=== PATIENT | female | born 1955 | race Caucasian/White ===

== ENCOUNTER 2021-08-16 14:54 | Outpatient (REF) | payer MEDICARE, MEDICAID, SELFPAY ==
--- NOTE | 2021-08-16 11:45 | PAPFT_PTH ---
PATIENT: Cher Willingham LOC: [facility]#:[id number] AGE/SX: 66/F ROOM: RE08/16/[address]: Torrey Rose : 1955 BED: DIS: 08/16/2021 SPEC #: [id number] RECD: 08/19/21 13:01 STATUS: GERALD RERaphael #: [id number] CHAITANYA: 08/16/21 11:[address]: Torrey Rose DEPT: [facility] Cytology RECD BY: Rochelle Rios Tissues: 1 - CX/ENDOCX FOR PAP SMEARS Procedures: PAP THIN PREP/[facility] Screening HPV DNA PROBE Comments: [id number]
== END 2021-08-16 14:55 | disposition home or self-care (01) ==
LOC: NCHCN 14:54
PROVIDERS: PCP Family Medicine; Visit Provider Family Medicine
DX: Z12.4 Encounter for screening for malignant neoplasm of cervix (principal); Z11.51 Encounter for screening for human papillomavirus (HPV); Z01.419 Encounter for gynecological examination (general) (routine) without abnormal findings
CPT/HCPCS: 88142; 87624

== ENCOUNTER 2021-12-27 18:29 | Outpatient (REF) | payer MEDICARE, MEDICAID, SELFPAY ==
[2021-12-27 19:58] LABS: HCT 40.3 % (36.0-46.0); MCH 31.1 pg (27.0-33.0); MCHC 32.3 % (32.0-36.0); MCV 96.4 fL (80-95); MPV 9.7 fL (8.0-11.0); Platelet Count 262 10^3/uL (130-400); RBC 4.18 10^6/uL (3.93-5.22); RDW 12.6 % (11.7-14.6); RDW-SD 44.7 fL
[2021-12-27 20:37] LABS: Folate 16.5 ng/mL (8.6-20.0); Vitamin B12 368 pg/mL (193-986)
== END 2021-12-27 18:30 | disposition home or self-care (01) ==
LOC: NCHCN 18:29
PROVIDERS: PCP Family Medicine; Visit Provider Family Medicine
DX: D72.819 Decreased white blood cell count, unspecified (principal)
CPT/HCPCS: 85027; 82607; 82746

== ENCOUNTER 2024-06-22 19:24 | Outpatient (REF) | payer MEDICARE, SELFPAY ==
--- NOTE | 2024-06-22 15:30 | SKI_PTH ---
PATIENT: Cher Willingham LOC: [facility]#:[id number] AGE/SX: 69/F ROOM: RE06/22/[address]: Betsy Chapa : 1955 BED: DIS: 06/22/2024 SPEC #: [id number] RECD: 06/23/24 12:58 STATUS: GERALD REQ #: [id number] CHAITANYA: 06/22/24 15:[address]: Betsy Chapa DEPT: Surgical Specimen RECD BY: Rochelle Rios ENTERED: 06/23/24 12:58 SP TYPE: RADHA GUERRA DR: Torrey Rose Tissues: 1 - SKIN BIOPSY(SHAVE/PUNCH) Procedures: IMMUNOPEROXIDASE STAIN SKIN LEVEL 4 Comments: [id number]
== END 2024-06-22 19:25 | disposition home or self-care (01) ==
LOC: NCHCN 19:24
PROVIDERS: PCP Family Medicine; Visit Provider Internal Medicine
DX: L98.8 Other specified disorders of the skin and subcutaneous tissue (principal)
CPT/HCPCS: 88305; 88361

== ENCOUNTER 2025-02-28 04:03 | Outpatient (CLI) | payer MEDICARE, SELFPAY ==
--- NOTE | 2025-02-28 11:43 | TELEFU_ITS ---
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 Cher states she has a sweat test scheduled for March to see if she may have CF or a degree of CF. States she has developed intolerances to dairy, wheat, fat (hx of cholecystectomy and states meat fat intolerant but handles plant oils and lean animal protein of from chicken or fish - does not eat beef,pork ham or sausage.) Acidic foods aggrevate her interstitial cystitis which also is a cause for some food choice avoidance due to association with more pain. Tries to keep up body weight with lots of leon. States flours of all kinds bind her up - even GF varieties. likes kimshi but limits to cystitis pain. Drinks are just water or hot water - finds coffee, teas and juices aggrevating to cystitis. Tends to have chronic constipation. She currently lives in [facility] and would like help navigating her menus to help tolerate better. Suggested incorporating MCT oil for fat source readily used for fuel and help stabilize weight along with emily seeds, collagen and whey protein powders to help meet protein needs with increased intolerances to many protein sources as well as trying slippery elm or marshmallow root to help protect mucosal gi lining. Also suggested spices like tumeric, meagan and cinnamon. I pointed her to an easier to work with resource to help with menus given her nu merous states intolerances. I gave her macro goals to plug into an AI bot like [employer] so she can feed it goal macro numbers as well as personally ask it to edit the menus based on her various intolerances until she can revise the menus to a point she feels comfortable consistently eating from them. We agreed to follow up call next Thursday to see how things are going using the resource and to offer more support/follow up. Time Spent in Nutritional Counseling and Treatment: 25 min
== END 2025-02-28 04:04 | disposition home or self-care (01) ==
LOC: DS 04:03
PROVIDERS: PCP Family Medicine; Visit Provider Dietitian, Registered
DX: K90.49 Malabsorption due to intolerance, not elsewhere classified (principal); N30.20 Other chronic cystitis without hematuria; Z71.3 Dietary counseling and surveillance
CPT/HCPCS: 00123; 97802

== ENCOUNTER 2025-07-17 16:53 | Outpatient (REF) | payer MEDICARE, SELFPAY ==
[2025-07-17 21:04] LABS: Abs Immature Grans 0.02 10^3/uL (0.0-0.06); HCT 35.8 % (36.0-46.0); HGB 12.1 g/dL (11.2-15.7); Immature Grans % 0.4 %; MCH 32.0 pg (27.0-33.0); MCHC 33.8 % (32.0-36.0); MCV 95 fL (80-95); MPV 9.6 fL (8.0-11.0); Platelet Count 227 10^3/uL (130-400); RBC 3.78 10^6/uL (3.93-5.22); RDW 12.6 % (11.7-14.6); RDW-SD 44.0 fL; WBC 5.71 10^3/uL (4.4-10.8)
[2025-07-17 21:22] LABS: ALT 19 U/L (14-59); AST 22 U/L (15-37); Albumin 3.6 g/dL (3.4-5.0); Alkaline Phosphatase 87 U/L (46-116); Anion Gap 5.4 mmol/L (3-11); BUN 17 mg/dL (7-18); Bilirubin, Total 0.3 mg/dL (0.2-1.0); CO2 28.6 mmol/L (21.0-32.0); Calcium 8.7 mg/dL (8.5-10.1); Chloride 100 mmol/L (98-107); Estimated GFR 80.21 (mL/min/1.73m2); Glucose 139 mg/dL (74-106); Potassium 4.1 mmol/L (3.5-5.1); Sodium 134 mmol/L (136-145); Total Protein 6.5 g/dL (6.4-8.2)
[2025-07-19 12:13] LABS: Lyme Ab w Rflx to Lyme Confirm Negative (Negative)
[2025-07-20 22:38] LABS: B. miyamotoi PCR Negative (Negative); Babesia divergens/MO-1 Negative (Negative); Ehrlichia muris eauclairensis Negative (Negative)
== END 2025-07-17 16:54 | disposition home or self-care (01) ==
LOC: NCHCN 16:53
PROVIDERS: PCP Family Medicine; Visit Provider Internal Medicine
DX: R68.83 Chills (without fever) (principal)
CPT/HCPCS: 80053; 87798; 85025; 86618

== ENCOUNTER 2025-07-28 11:37 | Outpatient (REF) | payer MEDICARE, SELFPAY ==
[2025-07-28 14:33] LABS: Abs Immature Grans 0.02 10^3/uL (0.0-0.06); HCT 36.3 % (36.0-46.0); HGB 12.0 g/dL (11.2-15.7); Immature Grans % 0.4 %; MCH 31.2 pg (27.0-33.0); MCHC 33.1 % (32.0-36.0); MCV 94 fL (80-95); MPV 9.6 fL (8.0-11.0); Platelet Count 242 10^3/uL (130-400); RBC 3.85 10^6/uL (3.93-5.22); RDW 12.5 % (11.7-14.6); RDW-SD 43.3 fL; WBC 5.32 10^3/uL (4.4-10.8)
[2025-07-28 14:35] LABS: ESR 2 mm/hr (0-30)
[2025-07-28 14:43] LABS: C-Reactive Protein < 0.50 mg/dL (<or=0.5)
== END 2025-07-28 11:38 | disposition home or self-care (01) ==
LOC: NCHCN 11:37
PROVIDERS: PCP Family Medicine; Visit Provider Internal Medicine
DX: R68.83 Chills (without fever) (principal)
CPT/HCPCS: 85652; 85025; 86140